=== PATIENT | male | born 1945 | race Caucasian/White ===

== ENCOUNTER 2020-05-16 05:27 | Day surgery (SDC) | payer MEDICARE ==
[2020-05-10 11:22] LABS: BASOPHILS # (AUTO) 0.1 X10'3 (0-0.2); BASOPHILS % (AUTO) 0.8 % (0-1); EOSINOPHILS # (AUTO) 0.3 X10'3 (0-0.9); EOSINOPHILS % (AUTO) 2.6 % (0-6); LYMPHOCYTES # (AUTO) 2.4 X10'3 (1.1-4.8); LYMPHOCYTES % (AUTO) 23.6 % (21-51); MEAN CORPUSCULAR HEMOGLOBIN 32.3 PG (27.0-31.0); MEAN CORPUSCULAR HGB CONC 33.8 g/dL (33.0-36.5); MEAN CORPUSCULAR VOLUME 95.7 FL (78-98); MEAN PLATELET VOLUME 8.4 FL (7.4-10.4); MONOCYTES # (AUTO) 0.6 X10'3 (0-0.9); MONOCYTES % (AUTO) 6.1 % (2-12); NEUTROPHILS # (AUTO) 6.9 X10'3 (1.8-7.7); NEUTROPHILS % (AUTO) 66.9 % (42-75); PRE OP HEMATOCRIT 43.8 % (42.0-52.0); PRE OP HEMOGLOBIN 14.8 g/dL (14.0-17.9); PRE OP PLATELET COUNT 250 X10'3 (140-440); RED BLOOD COUNT 4.58 X10'6 (4.70-6.10); RED CELL DISTRIBUTION WIDTH 14.6 % (11.5-14.5)
[2020-05-10 11:32] LABS: PRE OP PROTIME 25.1 SECONDS (9.0-12.0)
[2020-05-10 11:36] LABS: ALBUMIN 4.1 G/DL (3.4-5.0); ALKALINE PHOSPHATASE 109 IU/L (46-116); BLOOD UREA NITROGEN 18 MG/DL (7-18); BUN/CREATININE RATIO 16.1 (5.4-32.0); CALCIUM 9.7 MG/DL (8.5-10.1); CHLORIDE 105 MMOL/L (99-107); CREATININE 1.12 MG/DL (0.60-1.10); PRE OP ALT 62 U/L (30-65); PRE OP ANION GAP 4 (8-16); PRE OP AST 27 U/L (10-37); PRE OP BILIRUB, TOTAL 0.7 MG/DL (0.0-1.0); PRE OP GLUCOSE 102 MG/DL (70-104); PRE OP INR 2.6 INR; PRE OP POTASSIUM 4.1 MMOL/L (3.4-5.1); PRE OP SODIUM 142 MMOL/L (135-145); TOTAL CARBON DIOXIDE 32.6 MMOL/L (24-32); TOTAL PROTEIN 8.2 G/DL (6.4-8.2); eGFR 64 ML/MIN
[~2020-05-16] VITALS: Ht 182.9 cm; Wt 140.2 kg
[2020-05-16] VITALS (7 sets, daily range): BP systolic 161–188; BP diastolic 79–108
[~2020-05-16 05:27] MED LIST: ALLO300T8 PO; ATOR40TA72 PO; CARV25TA3 PO; COLC0.6T66 PO; DILT120C51 PO; FURO40TA4 PO; FURO80TA3 PO; ISOS120T13 PO; LISI40TA4 PO; POTA20TA19 PO; WARF4TAB69 PO; ringers solution, lacted 1,000 ML IV SCH
[2020-05-16] MEDS ORDERED: vancomycin 1,500 MG in NS 300ml IV soln IV ONE (05:30)
[2020-05-16] MEDS ORDERED: ceFAZolin inj. 3,000 MG in normal saline 100ml IV soln 100 ML IV ONE (05:30)
[2020-05-16] MEDS ORDERED: DOCUMENT DATE & TIME OF BETA-BLOCKER PO ONE (05:30)
[2020-05-16] MEDS ORDERED: famotidine 10mg tablet PO ONE (05:30)
[2020-05-16] MEDS ORDERED: ceFAZolin 1000mg inj ONE (06:46)
[2020-05-16] MEDS ORDERED: BUPIVAcaine/PF 2.5mg/ml (0.25%) 10ml vial ONE (06:47)
[2020-05-16 06:57] LABS: PRE OP PROTIME 24.1 SECONDS (9.0-12.0)
[2020-05-16 07:04] LABS: PRE OP INR 2.5 INR
[2020-05-16] MEDS ORDERED: LIDOcaine 1% 30ml preserv. free vial ONE (07:17)
[2020-05-16] MEDS ORDERED: MIDAZolam 5mg/5ml vial ONE (07:18)
[2020-05-16] MEDS ORDERED: fentaNYL/PF 50MCG/1 ML 2ML syringe ONE (07:18)
[2020-05-16] MEDS ORDERED: 0.9 % SODIUM CHLORIDE 10 ML VIAL ONE (07:35)
[2020-05-16] MEDS ORDERED: LIDOcaine 1%/PF 5ML 10 MG/ML VIAL ONE (07:35)
[2020-05-16] MEDS ORDERED: propofol inj 20 ML IV ONE (07:36)
--- NOTE | 2020-05-16 08:03 | NUR ---
Received from OR via radha, accompanied by Anesthesiologist Terrance and report given by Anesthesiolgist. Dresing to left hand CDI with vahe wrap, fingers exposed warm to touch good cap refill. All VS stable except hypertensive. MD states he was very high before and throughout. He discussed with patient the need to take his own BP meds as soon as he gets home as he normally would. He states ok to give trandate 1-2 times if BP in the 180s systolic but okay to go home and take his own meds once in the 170s. IVF at 100cc/hr to 20G in right hand. Pt alert and oriented, no pain.
[2020-05-16] MEDS ORDERED: ringers solution, lacted 1,000 ML IV SCH (08:10)
[2020-05-16] MEDS ORDERED: proCHLORperazine 10 MG/2 ml inj IV PRN (08:10)
[2020-05-16] MEDS ORDERED: ondansetron/PF 4mg/2ml inj IV PRN (08:10)
[2020-05-16] MEDS ORDERED: morphine 4 MG/ML inj SYRINge IV PRN (08:10)
[2020-05-16] MEDS ORDERED: morphine 2 MG/ML inj. syringe IV PRN (08:10)
[2020-05-16] MEDS ORDERED: meperidine/PF 25mg/ml syringe IV PRN ×3 (08:10)
[2020-05-16] MEDS ORDERED: labetalol 20mg/4ml (5mg/ml) syringe IV ONE ×2 (08:15→08:21)
--- NOTE | 2020-05-16 09:13 | NUR ---
Pt discharged to vehicle without incident by wheelchair, waiting. All DC instructions reviewed multiple times, extensive education on BP management. I reiterated MDs instructions to take home BP meds as soon as they arrive back to their house. Pt states he usually takes his am medications at 0930 so it works out perfectly with normal schedule. They confirmed they would mention the high BP pre/intra/post op to PCP at follow up next week as recommended by anesthesia. BP prior to leaving was 175/90 which was acceptable per MD. Otherwise all other belongings returned back to patient, IV was DC'd.
== END 2020-05-16 09:13 | disposition home or self-care (01) ==
LOC: PAS 05:27
PROVIDERS: ATTEND Orthopaedic Surgery
DX: M65.332 Trigger finger, left middle finger (principal); I10 Essential (primary) hypertension; I48.91 Unspecified atrial fibrillation; E66.01 Morbid (severe) obesity due to excess calories; Z68.41 Body mass index [BMI] 40.0-44.9, adult; Z96.651 Presence of right artificial knee joint; Z20.828 Contact with and (suspected) exposure to other viral communicable diseases; Z79.899 Other long term (current) drug therapy; Z79.01 Long term (current) use of anticoagulants; Z87.891 Personal history of nicotine dependence
CPT/HCPCS: 26055; 36415; 80053; 82948; 85025; 85610; 85730; 87635; 93005; A6222; J0690; J2001; J2250; J2704; J3010; J3370; J3490; A4215; A6449; A7000; J7040; J7120

== ENCOUNTER 2024-07-19 05:53 | Day surgery (SDC) | payer MEDICARE, OTHER ==
[2024-07-18 15:40] LABS: BASOPHILS # (AUTO) 0.1 X10'3 (0-0.2); BASOPHILS % (AUTO) 0.7 % (0-1); EOSINOPHILS # (AUTO) 0.3 X10'3 (0-0.9); EOSINOPHILS % (AUTO) 2.5 % (0-6); HEMATOCRIT 39.9 % (42.0-52.0); HEMOGLOBIN 13.2 g/dl (14.0-17.9); MEAN CORPUSCULAR HEMOGLOBIN 32.9 PG (27.0-31.0); MEAN CORPUSCULAR VOLUME 99.8 FL (78-98); MEAN PLATELET VOLUME 8.8 FL (7.4-10.4); MONOCYTES # (AUTO) 0.7 X10'3 (0-0.9); MONOCYTES % (AUTO) 7.3 % (2-12); NEUTROPHILS % (AUTO) 69.5 % (42-75); PLATELET COUNT 244 X10'3 (140-440); RED CELL DISTRIBUTION WIDTH 16.3 % (11.5-14.5)
[2024-07-18 15:47] LABS: ALBUMIN 3.8 G/DL (3.4-5.0); ANION GAP 10 (8-16); BLOOD UREA NITROGEN 33 MG/DL (7-18); BUN/CREATININE RATIO 29.7 (10.0-20.0); CALCIUM 9.4 MG/DL (8.5-10.1); CHLORIDE 107 MMOL/L (99-107); CREATININE 1.11 MG/DL (0.60-1.10); GLUCOSE 90 MG/DL (70-104); POTASSIUM 5.6 MMOL/L (3.5-5.1); SODIUM 145 MMOL/L (135-145); TOTAL CARBON DIOXIDE 28.5 MMOL/L (24-32); eGFR 64 ML/MIN
[2024-07-18 16:58] LABS: APTT 26 SECONDS (22-32)
[2024-07-18 17:21] LABS: INR 1.2 INR; PROTHROMBIN TIME 12.8 SECONDS (9.0-12.0)
[~2024-07-19] VITALS: Ht 182.9 cm; Wt 141.7 kg
[2024-07-19] VITALS (12 sets, daily range): BP systolic 128–156; BP diastolic 76–99; PULSE 78–105; RESP 16–20; TEMP 98; O2SAT 92–96
[~2024-07-19 05:53] MED LIST changes: -COLC0.6T66 PO; -DILT120C51 PO; +LISI40TA13 PO; -LISI40TA4 PO; +POTA-207 PO; -POTA20TA19 PO; +ROSU20TA98 PO; +VERA120T86 PO; -WARF4TAB69 PO; -ringers solution, lacted 1,000 ML IV SCH
[2024-07-19] MEDS ORDERED: ceFAZolin 3,000 MG in NS 100ml IVPB x1 dose post-op IV ONE (06:25)
[2024-07-19] MEDS ORDERED: SPIR25TA5 PO (06:34)
[2024-07-19] MEDS ORDERED: FINA5TAB11 PO (06:34)
[2024-07-19] MEDS ORDERED: WARF-55 PO (06:34)
[2024-07-19] MEDS: normal saline 1000ml 1,000 ML IV ONE (06:51)
[2024-07-19] MEDS ORDERED: fentaNYL/PF 50MCG/1 ML 2ML syringe ONE (08:10)
[2024-07-19] MEDS ORDERED: midazolam 1 mg/ML 2ml injection ONE ×2 (08:10→09:26)
[2024-07-19] MEDS ORDERED: LIDOcaine 1% W/epiNEPHrine 1:100,000 20ml vial ONE (08:10)
[2024-07-19] MEDS ORDERED: ceFAZolin 1000mg inj ONE (08:11)
[2024-07-19] MEDS ORDERED: heparin 1,000 UNITS/NS 500ml 500 ML ONE ×2 (08:25→09:39)
[2024-07-19] MEDS ORDERED: LIDOcaine 1% 30ml preserv. free vial ONE (08:31)
[2024-07-19] MEDS ORDERED: iohexol 350 MG/ML 50ML vial IV ONE ×5 (08:33→10:31)
[2024-07-19] MEDS ORDERED: heparin 1,000unit/ml 10ml vial 10 ML ONE (09:05)
[2024-07-19] MEDS ORDERED: hydrALAZINE 20mg/ml inj. ONE ×3 (09:12→11:09)
[2024-07-19] MEDS ORDERED: metoprolol tartrate 1mg/ml inj IV ONE (09:37)
[2024-07-19] MEDS ORDERED: HYDROmorphone 1 mg/ml syringe ONE (10:09)
[2024-07-19 12:09] LABS: ALBUMIN 3.6 G/DL (3.4-5.0); ANION GAP 13 (8-16); BLOOD UREA NITROGEN 30 MG/DL (7-18); BUN/CREATININE RATIO 30.3 (10.0-20.0); CHLORIDE 108 MMOL/L (99-107); CREATININE 0.99 MG/DL (0.60-1.10); GLUCOSE 167 MG/DL (70-104); POTASSIUM 4.5 MMOL/L (3.5-5.1); SODIUM 144 MMOL/L (135-145); TOTAL CARBON DIOXIDE 23.5 MMOL/L (24-32); eCRCL 68 ML/MIN; eGFR 73 ML/MIN
[2024-07-19] MEDS ORDERED: normal saline 1000ml 1,000 ML IV SCH (12:40)
[2024-07-19] MEDS ORDERED: hydrALAZINE 20mg/ml inj. IV PRN (12:40)
[2024-07-19] MEDS ORDERED: VERA240C2 PO (12:52)
== END 2024-07-19 17:05 | disposition home or self-care (01) ==
LOC: SSTAY O 05:53
PROVIDERS: ATTEND Internal Medicine Cardiovascular Disease
DX: I49.5 Sick sinus syndrome (principal); Z00.6 Encounter for examination for normal comparison and control in clinical research program; R00.1 Bradycardia, unspecified; I48.20 Chronic atrial fibrillation, unspecified; I44.7 Left bundle-branch block, unspecified; I50.22 Chronic systolic (congestive) heart failure; I25.2 Old myocardial infarction; R53.83 Other fatigue; E78.5 Hyperlipidemia, unspecified; I25.10 Atherosclerotic heart disease of native coronary artery without angina pectoris; E66.01 Morbid (severe) obesity due to excess calories; I42.9 Cardiomyopathy, unspecified; Z79.899 Other long term (current) drug therapy; I36.1 Nonrheumatic tricuspid (valve) insufficiency; I11.0 Hypertensive heart disease with heart failure; G47.30 Sleep apnea, unspecified; I27.29 Other secondary pulmonary hypertension; Z68.41 Body mass index [BMI] 40.0-44.9, adult
CPT/HCPCS: 33274; 36415; 80048; 85025; 85610; 85730; 93005; 99152; 99153; A6258; A6402; C1760; C1786; J0360; J0690; J1171; J1644; J2003; J2250; J3010; J3490; J7030; Q9967; Z7610; 76937; A6449